=== PATIENT | female | born 2000 ===

== ENCOUNTER 2019-08-22 09:34 | Outpatient (CLI) | payer OTHER | END 2019-08-22 09:38 | disposition home or self-care (01) | LOC: SONOGRAMA 09:34 | DX: Z12.31 Encounter for screening mammogram for malignant neoplasm of breast (principal); Z87.898 Personal history of other specified conditions; N63.10 Unspecified lump in the right breast, unspecified quadrant; N63.20 Unspecified lump in the left breast, unspecified quadrant ==

== ENCOUNTER 2019-08-31 09:06 | Outpatient (CLI) | payer OTHER | END 2019-08-31 09:30 | disposition home or self-care (01) | LOC: MAMO-SONO 09:06 | DX: N60.11 Diffuse cystic mastopathy of right breast (principal); N60.12 Diffuse cystic mastopathy of left breast; D05.11 Intraductal carcinoma in situ of right breast; D05.12 Intraductal carcinoma in situ of left breast ==

== ENCOUNTER 2019-09-07 11:26 | Outpatient (CLI) | payer OTHER | END 2019-09-07 13:42 | disposition home or self-care (01) | LOC: SONOGRAMA 11:26 | DX: Z12.31 Encounter for screening mammogram for malignant neoplasm of breast (principal); N63.0 Unspecified lump in unspecified breast ==

== ENCOUNTER 2019-09-17 13:22 | Outpatient (CLI) | payer OTHER | END 2019-09-17 13:34 | disposition home or self-care (01) | LOC: EKG 13:22 | DX: I10 Essential (primary) hypertension (principal) ==

== ENCOUNTER 2019-09-28 06:25 | Day surgery (SDC) | payer OTHER | END 2019-09-28 13:45 | disposition home or self-care (01) | LOC: CIR.AMB 06:25 | DX: D24.1 Benign neoplasm of right breast (principal) ==

== ENCOUNTER 2021-11-17 11:37 | Outpatient (CLI) | payer OTHER | END 2021-11-17 12:11 | disposition home or self-care (01) | LOC: SONOGRAMA 11:37 | PROVIDERS: ATTEND Surgery | DX: N60.11 Diffuse cystic mastopathy of right breast (principal); N60.12 Diffuse cystic mastopathy of left breast ==